=== PATIENT | female | born 1980 | race Two or more races ===

== ENCOUNTER 2016-11-09 05:03 | Inpatient (IN) | payer MEDICAID, OTHER ==
[2016-11-09] MEDS ORDERED: IV START KIT ONE (05:12)
[2016-11-09] MEDS ORDERED: LACTATED RINGERS 1,000 ML ONE (05:12)
[2016-11-09] MEDS: LACTATED RINGERS 1,000 ML IV SCH (05:35)
[2016-11-09 05:38] VITALS: BMI 29.5
[2016-11-09] MEDS ORDERED: CEFAZOLIN SODIUM 2 GRAM DUPLEX 2 G in Premix (D5W) 50 ml 1 EACH IV PRN (05:38)
[2016-11-09 06:16] LABS: HEMATOCRIT 31.4 % (37.0-47.0); HEMOGLOBIN 10.5 gm/l (12.0-16.0); MEAN CELL VOLUME 90.5 fl (81.0-99.0); MEAN CORPUSCULAR HEMOGLOBIN 30.3 pg (27.0-31.0); MEAN CORPUSCULAR HGB CONC 33.4 g/dl (33.0-37.0)
[2016-11-09] MEDS ORDERED: CEFAZOLIN SODIUM 2 GRAM DUPLEX 50 ML IV ONE (06:25)
[2016-11-09] MEDS ORDERED: FENTANYL 100 MCG/2 ML VIAL ONE (06:37)
[2016-11-09] MEDS ORDERED: MORPHINE SULFATE (DURAMORPH) 1 MG/ML 10ML AMP ONE (06:37)
[2016-11-09] MEDS ORDERED: ONDANSETRON 4 MG/2ML 2 ML VIAL ONE (06:39)
[2016-11-09] MEDS ORDERED: PHENYLEPHRINE 10 MG/1 ML (1%) VIAL ONE (06:39)
[2016-11-09] MEDS ORDERED: SODIUM CHLORIDE 0.9% FLUSH 10 ML ONE (06:39)
[2016-11-09] MEDS ORDERED: OXYTOCIN 10 UNITS/ML VIAL ONE ×3 (06:39→08:17)
[2016-11-09] MEDS ORDERED: SPINAL PROCEDURAL TRAY 1 EACH ONE (06:39)
[2016-11-09] MEDS ORDERED: FAMOTIDINE 10 MG/ML 2ML VIAL ONE (06:51)
[2016-11-09] MEDS ORDERED: CITRIC ACID/SODIUM CITRATE 15 ML UDCUP PO ONE (06:51)
[2016-11-09] MEDS ORDERED: NALOXONE HCL 0.4 MG/ML VIAL IV PRN (07:30)
[2016-11-09] MEDS ORDERED: ONDANSETRON 4 MG/2ML 2 ML VIAL IV PRN ×2 (07:30→08:41)
[2016-11-09] MEDS ORDERED: EPHEDRINE SULFATE 50 MG/ML 1ML VIAL IV PRN (07:30)
[2016-11-09] MEDS ORDERED: DIPHENHYDRAMINE HCL 50 MG/1 ML VIAL IV PRN ×2 (07:30→08:41)
[2016-11-09] MEDS ORDERED: HYDROMORPHONE HCL 1 MG/ML SYRINGE IV PRN (07:30)
[2016-11-09] MEDS ORDERED: HYDROMORPHONE HCL 2 MG/ML SYRINGE IV PRN (07:30)
[2016-11-09] MEDS ORDERED: NALBUPHINE HCL 20 MG/ML AMP IV PRN (07:30)
[2016-11-09] MEDS ORDERED: PROMETHAZINE HCL 25 MG/ML VIAL IM PRN (07:30)
[2016-11-09] MEDS ORDERED: LANOLIN 50 APPLIC/7G TUBE TP PRN (08:41)
[2016-11-09] MEDS ORDERED: DIPHENHYDRAMINE HCL 25 MG CAPSULE PO PRN (08:41)
[2016-11-09] MEDS ORDERED: MAGNESIUM HYDROXIDE 30 ML UDCUP PO PRN (08:43)
--- NOTE | 2016-11-09 08:46 | PCMBPN ---
Brief Post Op Note: Date of Procedure: 11/09/16 Start Time: see anesth record Preoperative Diagnosis: 1. term iup, h/o c sxn X 2 desires RCS. Postoperative Diagnosis: 1. same Procedure: RCS Surgeon: Zuleika Kimball MD Assist: MD Edyta Anesthesia: N Scar, CERTIFIED JUVENILE PROBATION OFFICER, Spinal Findings: normal uterus, ovaries, tubes. clear fluid, vertex female. Condition: stable Complications: none IV Fluids: 2000 mLs of LR Urine Output: 400 mLs clear yellow Estimated Blood Loss: 600 mLs Tourniquet Time: N/A Specimens: N/A Implants: n/a Drains: [N/A]
--- NOTE | 2016-11-09 09:33 | OP ---
Bree Rodas [id number] : 1980 DATE OF SURGERY: 11/09/2016 PREOPERATIVE DIAGNOSES: 1. Term intrauterine . 2. History of section x2 desiring repeat. POSTOPERATIVE DIAGNOSES: 1. Term intrauterine . 2. History of section x2 desiring repeat. PROCEDURE: Repeat section. SURGEON: Zuleika Kimball M.D. CAR REPAIRER: Dr. Larry Lan. ANESTHESIA: Performed Fabian Abbott CRNA, Spinal. BRIEF DESCRIPTION: This is a 35-year-old G3, P2, now P3 who presented to [facility] for a repeat section. DESCRIPTION: The patient was taken to the operating room where spinal anesthesia was placed without difficulty. She was then placed in a supine position and prepped and draped in a sterile fashion. A pfannenstiel incision was made sharply through the skin and the subcutaneous tissue to the level of the rectus fascia. The rectus fascia was then tranversely incised with Langley scissors. The anterior fascia was then grasped with Garland clamps and dissected free from the underlying rectus muscle and scar tissue with blunt dissection and Langley scissors. This was also performed inferiorly. There was a small diastasis of the rectus muscles. The parietal peritoneum and scar tissue were then entered bluntly and gentle traction applied for easy visualization of the uterus. There were no adhesions noted. A small Rusty was then placed for excellent visualization of the uterus. The vesicouterine peritoneum was transversely incised and a bladder flap was then developed. A incision was made then into the uterus transversely and extended laterally. The bag of roman was noted to have clear fluid and this was entered. The infant was noted to be in vertex presentation and the head was flexed and easily delivered through the uterine incision. A very loose nuchal cord was noted and was reduced. The rest of the female was then delivered with moderate fundal pressure. Delayed cord clamping of approximately 45 second to a minute was performed. The cord was then clamped and cut and the was passed to register nurse for resuscitation. The cord had three vessels and appeared within normal limits. The placenta was then delivered with manual traction and easily removed. The uterus was delivered onto the abdominal wall. The remaining bloody contents wiped free with a clean dry lap. The uterus was closed with 0 Vicryl running suture starting at one end and proceeding towards the other corner. Hemostasis was achieved with two figure of eight stitches. The tubes and ovaries appeared within normal limits. The bloody contents in the gutters and in the abdominal cavity was wiped free with a clean dry lap. The uterus was then placed back into the abdominal cavity and once again the uterine incision was inspected. The uterine incision showed excellent hemostasis and the gutters were once again wiped clean and free. The Rusty retractor was removed and all was inspected again. The parietal peritoneum was then grasped and closed with 2-0 Vicryl running suture in the usual fashion. A figure of eight single stitch was used to approximate the rectus muscles. There was no subfascial bleeding and the fascia was then closed starting at each corner and proceeding toward the midline. The subcutaneous tissue required small amount of electrocautery for excellent hemostasis and the skin was closed with suture. Sponge and needle counts were all reported as correct. Estimated blood loss was 600 mL. Urine output was 400 mL. IV fluids given was 2 liters of lactated ringers. Patient did well and was transported to postoperative recovery room in excellent condition. JOB: [id number]
[2016-11-09] MEDS: DOCUSATE SODIUM 100 MG CAPSULE PO SCH ×2 (13:49→21:06)
[2016-11-09] MEDS: FERROUS SULFATE (65 Fe) 325 MG TABLET PO SCH (13:49)
[2016-11-09] MEDS: PRENATAL VIT/FE FUMARATE/FA 1 TABLET PO SCH (13:50)
[2016-11-09] MEDS ORDERED: KETOROLAC TROMETHAMINE 30 MG/ML 1 ML VIAL IV PRN (14:00)
[2016-11-10] MEDS: LACTATED RINGERS 1,000 ML IV SCH ×3 (01:41→14:36)
[2016-11-10 06:54] LABS: HEMATOCRIT 29.2 % (37.0-47.0); HEMOGLOBIN 9.4 gm/l (12.0-16.0)
[2016-11-10] MEDS: PRENATAL VIT/FE FUMARATE/FA 1 TABLET PO SCH (08:50)
[2016-11-10] MEDS: DOCUSATE SODIUM 100 MG CAPSULE PO SCH ×2 (08:50→20:24)
[2016-11-10] MEDS: FERROUS SULFATE (65 Fe) 325 MG TABLET PO SCH (08:50)
[2016-11-10] MEDS: IBUPROFEN 600 MG TABLET PO PRN ×3 (08:50→20:24)
--- NOTE | 2016-11-10 13:14 | PDOC44 ---
- Subjective Day: 1 (POD#1 repeat csxn) Doing well. Able to ambulate, void. No fever, chills, cp, sob or leg pain. Reports Flatus, Reports Pain Tolerable, Reports , Reports Tolerating Regular Diet, Denies Nausea, Denies Vomiting - Objective Temp Pulse Resp BP Pulse Ox 97.9 F 88 18 96/52 16 11/10/16 08:45 11/10/16 08:45 11/10/16 08:45 11/10/16 08:45 11/10/16 04:04 Lab Results 11/10/16 06:25 Hgb 9.4 L Hct 29.2 L Current Medications Generic Name Dose Route Start Last Admin Trade Name Freq PRN Reason Stop Dose Admin Diphenhydramine HCl 25 - 50 mg 11/09/16 08:41 Benadryl PO Q6H PRN Itching (Mild/Moderate) Diphenhydramine HCl 25 - 50 mg 11/09/16 08:41 Benadryl IV Q6H PRN Itching (Severe) Docusate Sodium 100 mg 11/09/16 09:00 11/10/16 08:50 Colace PO 100 mg BID DIYA Administration Emollient Ointment 1 applic 11/09/16 08:41 [id number] TP PRN PRN sore nipples Ferrous Sulfate 325 mg 11/09/16 09:00 11/10/16 08:50 Ferrous Sulfate PO 325 mg DAILY DIYA Administration Lactated Ringer's 1,000 mls @ 100 mls/hr 11/09/16 05:45 11/10/16 01:41 Lactated Ringers IV Not Given .Q10H DIYA Ibuprofen 600 mg 11/09/16 08:41 11/10/16 08:50 Motrin PO 600 mg Q6H PRN Administration Pain Ketorolac Tromethamine 30 mg 11/09/16 14:00 11/09/16 23:31 Toradol IV 30 mg Q6H PRN Administration Pain (Mild/Moderate) Magnesium Hydroxide 30 ml 11/09/16 08:43 Milk Of Magnesia PO DAILY PRN Constipation Multivi/Iron Carb/Fe Sulf/FA/Prenat 1 tab 11/09/16 09:00 11/10/16 08:50 Plus PO 1 tab DAILY DIYA Administration Ondansetron HCl 4 mg 11/09/16 08:41 Zofran IV Q6H PRN Nausea/Vomiting Oxycodone/Acetaminophen 1 - 2 tab 11/09/16 08:41 Percocet 5/325 PO Q4H PRN Pain (Moderate) Sodium Chloride 10 ml 11/09/16 09:00 11/10/16 08:50 Normal Saline 10ml Flush IV 10 ml Q8HR DIYA Administration Sodium Chloride 10 ml 11/09/16 07:56 11/09/16 23:32 Normal Saline 10ml Flush IV 10 ml PRN PRN Administration - Physical Exam General: Afebrile, No Acute Distress Psych/Mental Status: Mood/Affect Appropriate, Judgment/Insight Intact, Bonding Well Neurological: Grossly Intact, Alert, Normal Speech HEENT: Atraumatic, Mucous membr. moist/pink Lungs: Clear to Auscultation Bilaterally Cardiovascular: Regular Rate and Rhythm Breast: Soft Fundus: Firm, Midline, Below Umbilicus Abdomen: Normal Bowel Sounds Skin: Normal Color, Warm, Dry, Intact, No Rash Wound ANIMAL CONTROL OFFICER: Well Approximated (clean and dry.), No Drainage, No Erythema, No Edema - Problems:Assessment/Plan (1) deliv due to previous difficult deliv, deliv, curr hospitaliz Status: Acute Assessment/Plan: Doing well POD#1 s/p repeat LTCS Routine post csxn care Support BF Anticip DC home in 2 days (2) Anemia associated with acute blood loss Status: Acute Assessment/Plan: Asxmatic Oral supplementation Fe and PNV on DC home Disposition: Stable
[2016-11-11] MEDS: OXYCODONE/ACETAMINOPHEN 5/325 MG TABLET PO PRN ×3 (02:07→11:59)
[2016-11-11] MEDS: IBUPROFEN 600 MG TABLET PO PRN ×4 (02:07→19:45)
[2016-11-11] MEDS: FERROUS SULFATE (65 Fe) 325 MG TABLET PO SCH (08:02)
[2016-11-11] MEDS: PRENATAL VIT/FE FUMARATE/FA 1 TABLET PO SCH (08:02)
[2016-11-11] MEDS: DOCUSATE SODIUM 100 MG CAPSULE PO SCH ×2 (08:02→19:45)
--- NOTE | 2016-11-11 10:04 | PDOC44 ---
- Subjective Day: 2 Reports Flatus, Reports Pain Tolerable, Reports , Reports Tolerating Regular Diet, Denies Nausea - Objective Temp Pulse Resp BP Pulse Ox 97.5 F 78 16 103/58 16 11/11/16 08:08 11/11/16 08:08 11/11/16 08:08 11/11/16 08:08 11/10/16 04:04 Current Medications Generic Name Dose Route Start Last Admin Trade Name Freq PRN Reason Stop Dose Admin Diphenhydramine HCl 25 - 50 mg 11/09/16 08:41 Benadryl PO Q6H PRN Itching (Mild/Moderate) Diphenhydramine HCl 25 - 50 mg 11/09/16 08:41 Benadryl IV Q6H PRN Itching (Severe) Docusate Sodium 100 mg 11/09/16 09:00 11/11/16 08:02 Colace PO 100 mg BID DIYA Administration Emollient Ointment 1 applic 11/09/16 08:41 [id number] TP PRN PRN sore nipples Ferrous Sulfate 325 mg 11/09/16 09:00 11/11/16 08:02 Ferrous Sulfate PO 325 mg DAILY DIYA Administration Ibuprofen 600 mg 11/09/16 08:41 11/11/16 08:03 Motrin PO 600 mg Q6H PRN Administration Pain Ketorolac Tromethamine 30 mg 11/09/16 14:00 11/09/16 23:31 Toradol IV 30 mg Q6H PRN Administration Pain (Mild/Moderate) Magnesium Hydroxide 30 ml 11/09/16 08:43 Milk Of Magnesia PO DAILY PRN Constipation Multivi/Iron Carb/Fe Sulf/FA/Prenat 1 tab 11/09/16 09:00 11/11/16 08:02 Plus PO 1 tab DAILY DIYA Administration Ondansetron HCl 4 mg 11/09/16 08:41 Zofran IV Q6H PRN Nausea/Vomiting Oxycodone/Acetaminophen 1 - 2 tab 11/09/16 08:41 11/11/16 08:02 Percocet 5/325 PO 1 tab Q4H PRN Administration Pain (Moderate) - Physical Exam General: Afebrile Psych/Mental Status: Mood/Affect Appropriate, Bonding Well Neurological: Grossly Intact, Alert HEENT: Atraumatic, EOMI Lungs: Clear to Auscultation Bilaterally, Normal Air Movement Cardiovascular: Regular Rate and Rhythm, Normal S1, Normal S2, No Murmur Breast: Skin intact Fundus: Firm, Midline, Below Umbilicus Wound HEAD CORRECTION OFFICER: Well Approximated, Other (steristrips in place), No Drainage, No Erythema, No Rash - Problems:Assessment/Plan (1) deliv due to previous difficult deliv, deliv, curr hospitaliz Status: Acute Assessment/Plan: Doing well POD#2 s/p repeat LTCS Routine post csxn care Support BF Anticip DC home tomorrow (2) Anemia associated with acute blood loss Status: Acute Assessment/Plan: Asxmatic Oral supplementation Fe and PNV on DC home Disposition: Stable, Anticipate DC Home Tomorrow
[2016-11-11] MEDS: LACTATED RINGERS 1,000 ML IV SCH (10:23)
[2016-11-12] MEDS: IBUPROFEN 600 MG TABLET PO PRN ×2 (01:57→08:42)
[2016-11-12] MEDS: DOCUSATE SODIUM 100 MG CAPSULE PO SCH (08:42)
[2016-11-12] MEDS: FERROUS SULFATE (65 Fe) 325 MG TABLET PO SCH (08:42)
[2016-11-12] MEDS: PRENATAL VIT/FE FUMARATE/FA 1 TABLET PO SCH (08:42)
--- NOTE | 2016-11-12 11:34 | PDOC39B ---
Hospital Course: ADMIT DATE: 11/09/16 DISCHARGE DATE: 11/12/16 ADMISSION DIAGNOSES: Term iup, h/o csxn X 2 desires RCS. PROCEDURES: RCS HISTORY OF PRESENT ILLNESS: 35 year old G3 T2 L2 at 39 weeks 5 days presenting to [facility] for desired repeat c section. HOSPITAL COURSE: The patient underwent RCS without complication. By day of discharge the patient is ambulating, eating, voiding, and passing flatus without difficulty. Pain is controlled and lochia is appropriate. She is breast feeding and supplementing with banked breast milk. - Physical Exam Vital Signs: Temp Pulse Resp BP Pulse Ox 97.6 F 67 16 109/66 16 11/12/16 08:45 11/12/16 08:45 11/12/16 08:45 11/12/16 08:45 11/10/16 04:04 General: Afebrile, No Acute Distress Psych/Mental Status: Mood/Affect Appropriate, Bonding Well Lungs: Clear to Auscultation Bilaterally Cardiovascular: Regular Rate and Rhythm, No Murmur Breast: Soft, Skin intact, No Tenderness Fundus: Firm, Midline, At Umbilicus Abdomen: Normal Bowel Sounds Lochia: Light, Moderate Extremities: No Edema, No Tenderness Skin: Warm, Dry, Intact Wound: Well Approximated, No Rash - Discharge Diagnosis (1) Anemia associated with acute blood loss Status: Acute Assessment/Plan: Asxmatic Oral supplementation Fe and PNV on DC home (2) deliv due to previous difficult deliv, deliv, curr hospitaliz Status: Acute Assessment/Plan: Doing well POD#3 s/p repeat LTCS Routine post csxn care Support BF Anticip DC home today Outpt as well. - Discharge Plan Condition: Good Disposition: Home Prescriptions: Docusate Sodium [Colace] 100 mg PO DAILY #30 cap Ibuprofen [IBUPROFEN 600 MG TABLET (SHF)] 1 tab PO Q6H PRN #30 tablet PRN Reason: Pain FERROUS SULFATE (65 Fe) [IRON FERROUS SULFATE 325 MG TABLET (SHF)] 325 mg PO DAILY #30 tab Oxycodone HCl/Acetaminophen [PERCOCET 5/325 MG TABLET (SHF)] 1 - 2 tab PO Q4H PRN #20 tab PRN Reason: Pain Follow-Up: Zuleika Kimball MD [Staff Physician] - 11/15/16
[2016-11-12 17:31] VITALS: BP 102/62
== END 2016-11-12 19:25 | disposition home or self-care (01) | DRG 765 ==
LOC: FBC 05:03 → EDSTATUS 11-16 17:58
PROVIDERS: ADMIT Family Medicine; ATTEND Family Medicine
PROC: 10D00Z1 Extraction of Products of Conception, Low, Open Approach (ICD-10-PCS; principal; 2016-11-09)
DX: O34.211 Maternal care for low transverse scar from previous cesarean delivery (principal); D62 Acute posthemorrhagic anemia; O99.02 Anemia complicating childbirth; Z3A.39 39 weeks gestation of pregnancy; Z37.0 Single live birth